=== PATIENT | male | born 1995 | race Caucasian/White ===

== ENCOUNTER 2021-07-29 21:26 | Emergency (ER) | payer SELFPAY ==
[~2021-07-29] VITALS: Ht 175.3 cm; Wt 107.0 kg
[2021-07-29 21:30] VITALS: BP 140/84
--- NOTE | 2021-07-29 21:30 | NUR ---
TO LOBBY A/W BED AMBULATORY
--- NOTE | 2021-07-29 21:54 | NUR ---
pt taken to bed 09.
--- NOTE | 2021-07-29 21:58 | NUR ---
26 Y/O MALE PATIENT PRESENTS TO ED WITH C/O RIGHT TOE PAIN X 6 MONTHS. PT STATES DROPPING A WOOD PALLET AT WORK, DAMAGING TOE NAIL, TRIMMING ROUTINELY, CLEANING WITH ETOH AND HYDROGEN PEROXIDE. PT REPORTS DIFFICULTY AMBULATING BUT HAS EVEN STEADY GAIT, TAKING X2 ADVIL FOR PAIN TODAY. RIGHT TOE IS REDDENED IN APPEARANCE, PAINFUL TO TOUCH, NO DRAINAGE NOTED. DENIES N/V/D; SKIN IS PINK/WARM/DRY; AAOX4; PT DENIES ANY FEVER, CP, SOB, OR COUGH AT THIS TIME; PATIENT STATES PAIN OF 3/10 AT THIS TIME; VSS; PATIENT POSITIONED FOR COMFORT; HOB ELEVATED; BEDRAILS UP X1; BED DOWN. PMEDHX: DENIES NKDA
[2021-07-29] MEDS ORDERED: LIDOCAINE 2% 1000 MG/50 ML VIAL INJ ONE (22:20)
--- NOTE | 2021-07-29 23:00 | NUR ---
DR POWER AT THE BEDSIDE
[2021-07-29] MEDS ORDERED: CEPH-588 PO (23:08)
[2021-07-29 23:33] VITALS: BP 138/82
--- NOTE | 2021-07-29 23:34 | NUR ---
Patient discharged with v/s stable. Written and verbal after care instructions given and explained ABOUT INGROWN TOENAIL CARE. Patient alert, oriented and verbalized understanding of instructions. Ambulatory with steady gait. All questions addressed prior to discharge. ID band removed. Patient advised to follow up with PMD. Rx of KEFLEX given. Patient educated on indication of medication including possible reaction and side effects. Opportunity to ask questions provided and answered.
== END 2021-07-29 23:33 | disposition home or self-care (01) ==
LOC: MED 21:26
DX: L60.0 Ingrowing nail (principal)
CPT/HCPCS: 11730; 99284; J2001

== ENCOUNTER 2021-07-31 12:27 | Emergency (ER) | payer SELFPAY ==
[~2021-07-31] VITALS: Ht 172.7 cm; Wt 106.1 kg
[~2021-07-31 12:27] MED LIST: CEPH-588 PO
[2021-07-31 12:36] VITALS: BP 145/92
--- NOTE | 2021-07-31 12:55 | NUR ---
26/M BIB SELF FOR RECHECK, STATES HE HAD INGROWN TOENAIL REMOVED 2 DAYS AGO AND WAS TOLD TO RETURN TODAY FOR RECHECK. DENIES NEW PAIN, FEVERS, OR SIGNS OF INFECTION. MEDHX: DENIES ALLERGIE: [place]
--- NOTE | 2021-07-31 13:04 | NUR ---
DR YODER AT BEDSIDE
[2021-07-31] MEDS ORDERED: BACITRACIN OINT 500 UNITS/GM PKT TP ONE (13:05)
[2021-07-31 13:40] VITALS: BP 145/92
--- NOTE | 2021-07-31 13:40 | NUR ---
Patient discharged with INFORMATION FOR INGROWN TOENAIL v/s stable. Written and verbal after care instructions given. Patient verbalized understanding. Ambulatory with steady gait. All questions addressed prior to discharge. Advised to follow up with PMD.
--- NOTE | 2021-07-31 13:40 | NUR ---
The patient's care was reviewed and supervised by Moises Fitzgerald RN.
== END 2021-07-31 13:40 | disposition home or self-care (01) ==
LOC: MED 12:27
DX: L60.0 Ingrowing nail (principal); Z48.01 Encounter for change or removal of surgical wound dressing; Z79.899 Other long term (current) drug therapy
CPT/HCPCS: 99282